=== PATIENT | female | born 1955 | race Caucasian/White ===

== ENCOUNTER 2017-03-22 08:26 | Outpatient (CLI) | payer OTHER, SELFPAY ==
--- NOTE | 2017-04-05 12:19 | MMO ---
BILATERAL SCREENING MAMMOGRAM: History: Annual screening exam. Comparison: 03-17-14 FINDINGS: This study is interpreted with the assistance of computer aided detection. Scattered fibroglandular changes of both breasts are present. There is no dominant mass, suspicious c alcification or other signs of malignancy. IMPRESSION: BIRADS category 1 - negative. POS: [facility]
== END 2017-03-22 08:27 | disposition home or self-care (01) ==
LOC: SCSMAMMO 08:26
PROVIDERS: ATTEND Family Medicine
DX: Z12.31 Encounter for screening mammogram for malignant neoplasm of breast (principal); Z12.11 Encounter for screening for malignant neoplasm of colon
CPT/HCPCS: 77063; 77067; G0202